=== PATIENT | male | born 1975 | race Caucasian/White ===

== ENCOUNTER 2021-11-27 15:20 | Emergency (ER) | payer OTHER, SELFPAY ==
[2021-11-27 15:31] VITALS: BP 172/112; PULSE 100; RESP 16; TEMP 37.1; O2SAT 100
--- NOTE | 2021-11-27 15:50 | ED.ANIMALBIT ---
HPI - Animal Bite General Chief Complaint: Animal Bite Stated Complaint: Cat Bite Time Seen by Provider: 11/27/21 15:50 Source: patient Mode of arrival: ambulatory Limitations: no limitations History of Present Illness HPI narrative: 46-year-old male presented for complaint of cat bite to the right index finger today. He states he was rescuing a stray cat from his swimming pool and was bit on the finger. He denies numbness, tingling, or decreased range of motion. He has not applied anything to the site. Denies allergies. Related Data Home Medications Medication Instructions Recorded Confirmed No Home Medications 11/27/21 11/27/21 Allergies Allergy/AdvReac Type Severity Reaction Status Date / Time acetaminophen [From Vicodin] AdvReac Headache Verified 11/27/21 15:45 hydrocodone [From Vicodin] AdvReac Headache Verified 11/27/21 15:45 Review of Systems Review of Systems: CONSTITUTIONAL: Denies body aches, fever, chills, or sweats. EYES: Denies visual changes, redness, or discharge. ENT: Denies rhinorrhea, congestion, sore throat, or otalgia. CARDIOVASCULAR: Denies chest pain, palpitations, or edema. RESPIRATORY: Denies cough or dyspnea. GASTROINTESTINAL: Denies abdominal pain, nausea, vomiting, or diarrhea. GENITOURINARY: Denies dysuria or hematuria. SKIN: Cat bite to finger MUSCULOSKELETAL: Denies back pain, joint pain, or myalgia. NEUROLOGIC: Denies headache, numbness, tingling, or weakness. PSYCH: Denies depression or anxiety. [facility] Social History Social History Smoking status: Never smoker Alcohol intake: never Comments At time of signature, I have reviewed and agree with nursing past medical, surgical, social and family history unless otherwise noted. Please see nursing chart for further information. There is no relevant family history pertinent to the presenting complaint Exam Narrative: GENERAL: Well-appearing HEAD: Normocephalic, atraumatic. EYES: conjunctivae clear, and EOMI. ENT: Mucous membranes moist. Oropharynx without edema, erythema or lesions. NECK: Supple. No lymphadenopathy CHEST: Clear to auscultation. No respiratory distress. HEART: Regular rate and rhythm. SKIN: Warm, dry. 2 puncture wounds to the right second digit middle phalanx, no active drainage, no swelling, induration, or redness noted NEURO: Alert and oriented x3. PSYCH: Normal mood and affect Course Course Emergency Course: Patient is aware of diagnosis, understands and agrees to treatment plan. Anticipatory guidance given. Patient agrees to follow-up as directed and is aware of reasons to seek care at the emergency department. Portions of this record may have been created with voice recognition software Level of Care: Express Care Visit Vital Signs Vital signs: Vital Signs Temperature 98.7 F 11/27/21 15:31 Pulse Rate 100 11/27/21 15:31 Respiratory Rate 16 11/27/21 15:31 Blood Pressure 172/112 H 11/27/21 15:31 Pulse Oximetry 100 11/27/21 15:31 Temperature 98.7 F 11/27/21 15:31 Pulse Rate 100 11/27/21 15:31 Respiratory Rate 16 11/27/21 15:31 Blood Pressure 172/112 H 11/27/21 15:31 Pulse Oximetry 100 11/27/21 15:31 Reviewed MDM - Animal Bite MDM Narrative Medical decision making narrative: Wound was cleaned, antibiotic prescription given. He is advised to monitor for worsening appearance of the wounds and return to the ER. Differential Diagnosis Differential diagnosis: Likely cat bite Discharge Plan Discharge Clinical Impression: Cat bite Qualifiers: Encounter type: initial encounter Qualified Code(s): W55.01XA - Bitten by cat, initial encounter Patient Disposition: Home, Self-Care Condition: Stable Instructions: Antibiotic Form, Animal Bite (ED) Additional Instructions: Antibiotic as directed Keep the area clean and dry - cleanse with warm water and mild soap and allow to fully dry. Ok to apply
[2021-11-27] MEDS: TETANUS,DIPHTHERIA,AC PERTUSSIS ADULT (0.5 ML) BOOSTRIX IM (15:54)
== END 2021-11-27 16:06 | disposition home or self-care (01) ==
PROVIDERS: Emergency Provider Nurse Practitioner Family; PCP Hospitalist
DX: S61.250A Open bite of right index finger without damage to nail, initial encounter (principal); Z23 Encounter for immunization; W55.01XA Bitten by cat, initial encounter
CPT/HCPCS: 90471; 90715; 99203; G0463

== ENCOUNTER 2022-12-27 16:14 | Emergency (ER) | payer OTHER, SELFPAY ==
--- NOTE | ~2022-12-27 | XR_ITS ---
AP and lateral views of the left tibia/fibula Clinical History: Injury Findings: No acute fracture or dislocation is seen. Osseous alignment is anatomic. Joint spaces are p reserved without significant erosive or degenerative change. Soft tissues are unremarkable. Impression: Unremarkable left tib-fib radiographs. Reviewed, dictated and finalized at [facility]. Impression: Unremarkable left tib-fib radiographs.
[2022-12-27 16:22] VITALS: BP 168/100
[2022-12-27 16:23] VITALS: PULSE 93; RESP 16; TEMP 37.2; O2SAT 99
--- NOTE | 2022-12-27 16:34 | ED.LOWEXIN ---
HPI - Extremity Injury (Lower) General Chief Complaint: Extremity Injury, Lower Stated Complaint: lower left leg injury Time Seen by Provider: 12/27/22 16:35 Source: patient Mode of arrival: ambulatory Limitations: no limitations History of Present Illness HPI Narrative: 47-year-old male presented for complaint of left lower leg pain after injury today. He states around 2:00 p.m. he was pulling a wheelbarrow when he tripped over stones behind him causing him to fall back, and the left leg was wedged between stones and the wheelbarrow. He is concerned that the leg is broken. He states that over the last hour his calf has been throbbing. Endorses some abrasions to the lower leg. He has not taken anything for pain. He denies numbness, tingling, weakness or difficulty ambulating. Related Data Home Medications Medication Instructions Recorded Confirmed lisinopril 40 mg tablet 40 mg PO DIRECTED 12/27/22 12/27/22 propranolol 20 mg tablet 20 mg PO DIRECTED 12/27/22 12/27/22 sumatriptan succinate 100 mg tablet 100 mg PO DIRECTED 12/27/22 12/27/22 Allergies Allergy/AdvReac Type Severity Reaction Status Date / Time acetaminophen [From Vicodin] AdvReac Headache Verified 12/27/22 16:27 hydrocodone [From Vicodin] AdvReac Headache Verified 12/27/22 16:27 Review of Systems Review of Systems: CONSTITUTIONAL: Denies body aches, fever, chills EYES: Denies visual changes ENT: Denies rhinorrhea, congestion CARDIOVASCULAR: Denies chest pain, palpitations, or edema. RESPIRATORY: Denies cough or dyspnea. SKIN: Denies rash, itching reports leg abrasion MUSCULOSKELETAL: Reports left leg pain NEUROLOGIC: Denies headache, numbness, tingling, or weakness. All systems reviewed & are unremarkable except as noted in HPI and below PMFSH Past Medical History Medical History (Updated 12/27/22 @ 16:49 by Tatum Love APRN) HTN (hypertension), malignant Social History Social History Smoking status: Never smoker Alcohol intake: never Comments At time of signature, I have reviewed and agree with nursing past medical, surgical, social and family history unless otherwise noted. Please see nursing chart for further information. There is no relevant family history pertinent to the presenting complaint Exam Narrative: GENERAL: Well-appearing, well-nourished, and in no acute distress. CHEST: Speaks in full sentences. No respiratory distress. HEART: Regular rate and rhythm. Normal and equal peripheral pulses. EXTREMITIES: LLE has normal strength and sensation, normal range of motion, endorses lower leg pain with palpation over distal tibia and distal calf, with movement of foot and with varus/valgus pressure. Mild calf swelling. No ecchymosis, No obvious deformity; alignment normal, pulse palpable and equal bilaterally, skin warm, dry, pink. Capillary refill less than 3 seconds. SKIN: Warm, dry, Left lower leg with scattered abrasions no active bleeding NEURO: Alert and oriented x3. PSYCH: Normal mood and affect Course Course Emergency Course: Patient is aware of diagnosis, understands and agrees to treatment plan. Anticipatory guidance given. Patient agrees to follow-up as directed and is aware of reasons to seek care at the emergency department. Portions of this record may have been created with voice recognition software Level of Care: Express Care Visit Vital Signs Vital signs: Vital Signs Blood Pressure 168/100 H 12/27/22 16:22 Temperature 98.9 F 12/27/22 16:23 Pulse Rate 93 12/27/22 16:23 Respiratory Rate 16 12/27/22 16:23 Blood Pressure 168/100 H 12/27/22 16:22 Pulse Oximetry 99 12/27/22 16:23 Reviewed MDM - Extremity Injury (Lower) MDM Narrative Medical decision making narrative: Results of x-ray reviewed with patient. Discussed physical exam findings. Declines to take med for pain. States he just want
== END 2022-12-27 16:43 | disposition home or self-care (01) ==
PROVIDERS: Emergency Provider Nurse Practitioner Family; PCP Family Medicine
DX: M79.662 Pain in left lower leg (principal); I10 Essential (primary) hypertension; W01.0XXA Fall on same level from slipping, tripping and stumbling without subsequent striking against object, initial encounter
CPT/HCPCS: 73590; 99213; G0463

== ENCOUNTER 2025-06-28 14:10 | Emergency (ER) | payer OTHER, SELFPAY ==
--- NOTE | ~2025-06-28 | XR_ITS ---
EXAMINATION: XR foot LT min 3V, 06/28/2025 15:00 [employer] HISTORY: pain MTP great toe COMPARISON: No comparisons available. Findings: No acute fracture or malalignment. No significant degenerative changes. Soft tissues unremarkable. Impression: No acute fracture or malalignment. Reviewed, dictated and finalized at location [employer] Impression: No acute fracture or malalignment.
[2025-06-28 14:24] VITALS: BP 149/102; PULSE 85; RESP 18; TEMP 36.7; O2SAT 100
--- NOTE | 2025-06-28 14:50 | ED.LOWEXIN ---
HPI - Extremity Injury (Lower) General Chief Complaint: Extremity Injury, Lower Stated Complaint: left foot front region pain Time Seen by Provider: 06/28/25 14:50 Source: patient, RN notes reviewed and old records reviewed Mode of arrival: ambulatory Limitations: no limitations History of Present Illness HPI Narrative: 49-year-old male presents to the [facility] with leftGreat toe, foot pain since this morning. States that he played pickle ball, no known injury. Mild inflammation noted to the MTP of the left great toe. No erythema, does have significant tenderness. Capillary refill under 2 seconds, sensation intact. Patient denied drinking alcohol, no high purine diet Related Data Home Medications ?Medication ?Instructions ?Recorded ?Confirmed ?Last Taken ?Type lisinopril 40 mg tablet 40 mg PO DIRECTED 12/27/22 12/27/22 Unknown History propranolol 20 mg tablet 20 mg PO DIRECTED 12/27/22 12/27/22 Unknown History sumatriptan succinate 100 mg tablet 100 mg PO DIRECTED 12/27/22 12/27/22 Unknown History Allergies Allergy/AdvReac Type Severity Reaction Status Date / Time acetaminophen (From Vicodin) AdvReac Headache Verified 06/28/25 14:13 hydrocodone (From Vicodin) AdvReac Headache Verified 06/28/25 14:13 Review of Systems Review of Systems: All systems reviewed & are unremarkable except as noted in HPI and below Constitutional: Constitutional: Reports no additional constitutional complaints Cardiovascular: Cardiovascular: Reports no additional cardiovascular complaints, Denies chest pain and Denies dyspnea Respiratory: Respiratory: Reports no additional respiratory complaints, Denies chest congestion, Denies cough and Denies dyspnea Musculoskeletal: Musculoskeletal: Reports as per HPI Integumentary/Breasts: Skin/Breast: Reports system reviewed and no additional complaints, except as docu PMFSH Past Medical History Medical History HTN (hypertension), malignant Social History Social History Smoking status: Never smoker Alcohol intake: never Comments At the time of my signature, I reviewed and agree with the nursing past medical, surgical, social, and family history. There is no relevant family history pertinent to the patient complaint. Exam Const: General: cooperative, healthy appearing, comfortable, no acute distress, well developed, alert and well nourished Nutritional Appearance: well nourished Orientation/consciousness: patient oriented x3 Limitations: no limitations HENMT: Head: normal to inspection Eyes: General: appearance normal, both eyes and all related structures Alignment and Position: alignment normal Neck: Neck: normal visual inspection, full ROM, no lymphadenopathy and no meningeal signs Chest: Chest palpation & inspection: normal inspection of the chest Resp: Effort & Inspection: normal respiratory effort and able to speak in complete sentences Cardio: Rate: regular rate Skin: General skin exam: normal color and no rashes or lesions noted Neuro: General: patient oriented x3, moves all extremities and no meningeal signs Cognition (Neuro): normal cognition Speech: normal speech Extrem: General: normal to inspection, full ROM, capillary refill normal and normal gait Left lower extremity: foot Details: normal capillary refill, tenderness Location: of the great toe Location: at the MTP joint and vascular exam Details: dorsalis pedis pulse present and normal capillary refill; no abrasions, no ecchymosis and no foreign bodies Psych: Appearance: grossly normal and well kempt Mental Status: mental status grossly normal Speech and movement: Normal speech and movement present and Clear speech present Affect: normal affect Attitude: cooperative Course Course Level of Care: Express Care Visit Vital Signs Vital signs: Vital Signs Temperature 98.1 F 06/28/25 14:24 Pulse Rate 85 06/28/25 14:24 Respiratory Rate 18 06/28/25 14:24 Blood Pressure 149/102 H 06/28/25 14:24 Pulse Oximetry 100 06/28/25 14:24 Oxygen Delivery Room Air 06/28/25 14:24 Temperature 98.1 F 06/28/25 14:24 Pulse Rate 85 06/28/25 14:24 Respiratory Rate 18 06/28/25 14:24 Blood Pressure 149/102 H 06/28/25 14:24 Pulse Oximetry 100 06/28/25 14:24 Oxygen Delivery Room Air 06/28/25 14:24 reviewed MDM MDM Narrative Medical decision making narrative: patient sitting in exam room. Patient is nontoxic, vitals are stable except blood pressure mildly elevated. Currently on medication. Patient presents with left M TP pain, tenderness without erythema. Denies any injury. X-ray with no acute findings exam concerning for gout but without the erythema. Symptoms had just started a couple of hours prior to arrival. Will attempt indomethacin. Discussed importance of following up which patient verbalized understanding Discharge instructions reviewed with patient, as well as provided in writing per nursing staff. The instructions also include specific and strict return/GO TO THE ER as well as f/u information. All questions have been answered, and the patient deny any further questions with discharge and discharge plan. Some parts of this dictation were generated by voice recognition software and may contain typographical and/or grammatical inaccuracies. Differential Diagnosis Differential Diagnosis: Differential diagnostic considerations for lower extremity injury include ankle sprain/strain, acute internal derangement of knee, fracture of femur, fracture of hip, puncture wound of foot, fracture of toe, fracture of ankle, gout, toe fracture, foot fracture, arthritic changes, tendon rupture (achilles/patellar/quadriceps). Imaging Data Radiologist's impression: ITS Impressions Foot X-Ray 06/28/25 15:22 Impression: No acute fracture or malalignment. EXAMINATION: XR foot LT min 3V, 06/28/2025 15:00 [employer] HISTORY: pain MTP great toe COMPARISON: No comparisons available. Findings: No acute fracture or malalignment. No significant degenerative changes. Soft tissues unremarkable. Impression: No acute fracture or malalignment. Critical Care Time Critical Care Time Critical Care Time: No Discharge Plan Discharge Clinical Impression: Pain of left great toe Patient Disposition: Home Condition: Stable Instructions: Antibiotic Form, Gout (ED) Additional Instructions: Your Xray did not show a fracture. Wear good supportive shoes at all times. Ice should be applied to help reduce swelling. It can be used for 20 to 30 minutes, every 2-3 hours while awake. Do not apply ice directly to your skin. Take the indomethacin as prescribed take Tylenol as needed, you can take per package instruction Please schedule a follow-up visit with your personal physician for further evaluation and treatment within 2 weeks especially if symptoms persist. For new or worsening symptoms go directly to the emergency room Patient Language: Samoan Prescriptions: New indomethacin 50 mg capsule 50 mg PO TID 7 Days Qty: 21 0RF Rx Instructions: administer with food or milk No Action sumatriptan succinate 100 mg tablet 100 mg PO DIRECTED propranolol 20 mg tablet 20 mg PO DIRECTED lisinopril 40 mg tablet 40 mg PO DIRECTED Follow-up/Referrals: Sharif,MD Steven [Primary Care Provider, Unknown] - 2 Weeks Stand Alone Forms: Work/School Release IP Time of Disposition: 15:29
== END 2025-06-28 15:42 | disposition home or self-care (01) ==
PROVIDERS: Emergency Provider Nurse Practitioner; PCP Hospitalist
DX: M79.675 Pain in left toe(s) (principal); I10 Essential (primary) hypertension
CPT/HCPCS: 73630; 99213; G0463